=== PATIENT | male | born 1975 | race Hispanic/Latino ===

== ENCOUNTER 2018-08-19 19:23 | Emergency (ER) | payer BC ==
[~2018-08-19] VITALS: Ht 185.4 cm; Wt 95.3 kg
[2018-08-19] MEDS ORDERED: FAMOTIDINE 20 MG TAB ONE (19:39)
[2018-08-19] MEDS ORDERED: PREDNISONE 20 MG TAB ONE (19:39)
[2018-08-19] MEDS ORDERED: PREDNISONE 20 MG TAB PO ONE (19:45)
[2018-08-19] MEDS ORDERED: FAMOTIDINE 20 MG TAB PO ONE (19:45)
[2018-08-19] MEDS ORDERED: BENADRYL25 M1 PO (20:41)
[2018-08-19] MEDS ORDERED: PREDNISONE20 MG PO (20:41)
[2018-08-19] MEDS ORDERED: PEPCID20 MG PO (20:41)
[2018-08-19 20:56] VITALS: BP 155/74
== END 2018-08-19 21:03 | disposition home or self-care (01) ==
LOC: ER 19:23
DX: L50.0 Allergic urticaria (principal); T61.784A Other shellfish poisoning, undetermined, initial encounter; I10 Essential (primary) hypertension; J45.909 Unspecified asthma, uncomplicated
CPT/HCPCS: 99283; J7512